=== PATIENT | female | born 2005 | race Caucasian/White ===

== ENCOUNTER → 2023-05-10 13:15 | Outpatient (CLI) | payer OTHER, SELFPAY ==
--- NOTE | ~2023-05-10 | US_ITS ---
EXAMINATION: US OB /maternal detail DATE: 05/10/2023 14:02 INDICATION: Second trimester anatomic survey TECHNIQUE: Real-time ultrasound of the pelvis was performed. COMPARISON: None. FINDINGS: There is a single living fetus in vertex presentation. The placenta is posterior and 5.7 cm from the internal cervical os. The measured cervical length is 4.7 cm. heart rate is 143 beats per minut e (bpm). cardiac activity and movement are noted. The amniotic fluid index is subjective ly normal. The following anatomy was identified as normal: 4 chamber heart 3 vessel cord cord insertion kidneys urinary bladder stomach spine diaphragm ventricles cisterna magna cerebellum The following biometric data were obtained: Biparietal diameter (BPD): 4.7 cm; head circumference (HC): 18.1 cm; abdominal circumference (AC): 14 .9 cm; femur length (FL): 3.1 cm. These measurements are concordant. Estimated weight is 329 g +/- 49 g, which correlates with the 20th percentile when 09/23/2023 is used as estimated date of delivery. As single measurements, these parameters are each equal to the following estimated gestational ages w ith ranges of +/- 2 standard deviations: BPD: 20 weeks 2 days ( 18 weeks 4 days - 22 weeks 0 days). HC: 20 weeks 4 days ( 19 weeks 0 days - 22 weeks 0 days). AC: 20 weeks 1 days ( 18 weeks 1 days - 22 weeks 2 days). FL: 19 weeks 6 days ( 18 weeks 0 days - 21 weeks 4 days). estimated gestational age based solely on measurements from this exam is 20 weeks 2 days +/- 1 weeks 3 days. IMPRESSION: 1. Single living fetus in vertex presentation. 2. Estimated weight is 329 g +/- 49 g, which correlates with the 20th percentile when 09/23/2023 is used as estimated date of delivery. Reviewed, dictated and finalized at location F. IMPRESSION: 1. Single living fetus in vertex presentation. 2. Estimated weight is 329 g +/- 49 g, which correlates with the 20th per centile when 09/23/2023 is used as estimated date of delivery.
== END ==
PROVIDERS: PCP Nurse Practitioner Women's Health; Visit Provider Nurse Practitioner Women's Health
DX: Z36.9 Encounter for antenatal screening, unspecified (principal)
CPT/HCPCS: 76805